=== PATIENT | female | born 1980 | race African-American/Black ===

== ENCOUNTER 2016-09-03 23:44 | Emergency (ER) | payer MEDICAID ==
[~2016-09-03] VITALS: Ht 167.6 cm; Wt 54.4 kg
[2016-09-04] VITALS: BP 125/79
== END 2016-09-04 03:55 | disposition left against medical advice (07) ==
LOC: ER 23:44
DX: M25.511 Pain in right shoulder (principal); Z53.21 Procedure and treatment not carried out due to patient leaving prior to being seen by health care provider
CPT/HCPCS: 73030

== ENCOUNTER 2017-03-20 18:27 | Emergency (ER) | payer SELFPAY ==
[~2017-03-20] VITALS: Ht 167.6 cm; Wt 54.4 kg
[2017-03-20] MEDS ORDERED: SODIUM CHLORIDE 0.9% 1,000 ML IV ONE (19:30)
[2017-03-20] MEDS ORDERED: LORazepam 2MG/ML-1ML VIAL IV ONE (19:30)
[2017-03-20 19:38] LABS: Eosinophils # (auto) 0 uL; Lymphocytes # (auto) 0.4 uL; Mean Corpuscular Hgb Conc. 31.5 g/dL (32.0-36.0); Monocytes # (auto) 0.2 uL; White Blood Cell 8.2 10^3/uL (4.4-10.8)
[2017-03-20 19:40] LABS: Basophils # (auto) 0.1 uL; Eosinophils % (auto) 0.2 % (0.0-7.0); Hematocrit 38.2 % (36.0-46.0); Lymphocytes % (auto) 5.5 % (10.0-50.0); Mean Corpuscular Hemoglobin 25.8 pg (28.0-32.0); Mean Corpuscular Volume 81.7 fL (80.0-100.0); Monocytes % (auto) 2.8 % (0.0-12.0); Neutrophils # (auto) 7.4 uL; Neutrophils % (auto) 90.5 % (37.0-80.0); Nucleated Red Blood Cells % 0.1 %; Platelet Count (auto) 282 10^3/uL (140-450); Red Blood Cells 4.67 10^6/uL (4.0-5.20); Red Cell Distribution Width 18.2 % (11.8-14.3)
[2017-03-20 19:50] LABS: Albumin 3.6 g/dL (3.4-5.0); BUN/Creatinine Ratio 26.2; Bilirubin, Total 0.6 mg/dL (0.2-1.0); Calcium 8.3 mg/dL (8.5-10.1); Magnesium 1.9 mg/dL (1.6-2.6); Potassium 3.6 mmol/L (3.5-5.1); Total Protein 7.4 g/dL (6.4-8.2)
[2017-03-20 19:58] LABS: INR 0.97 (0.9-1.15); Partial Thromboplastin Time 28.5 sec (22.64-33.71); Prothrombin Time 10.6 sec (9.37-12.3)
[2017-03-20 22:09] VITALS: BP 116/74
== END 2017-03-20 22:15 | disposition home or self-care (01) ==
LOC: EDBD 18:27 → EDUNIT# 18:27 → ER 18:35
DX: K29.70 Gastritis, unspecified, without bleeding (principal); K59.00 Constipation, unspecified; F12.10 Cannabis abuse, uncomplicated; Z91.030 Bee allergy status
CPT/HCPCS: 36415; 74176; 80053; 82150; 83605; 83690; 83735; 84702; 85025; 85610; 85730; 87040; 94761; 96361; 96374; 99285; J2060; J7030; J7040

== ENCOUNTER 2017-08-20 15:34 | Emergency (ER) | payer MEDICAID ==
[~2017-08-20] VITALS: Ht 167.6 cm; Wt 50.8 kg
[2017-08-20] MEDS ORDERED: LORazepam 0.5 MG TAB PO ONE (16:15)
[2017-08-20 16:38] LABS: Basophils # (auto) 0.1 uL; Eosinophils # (auto) 0.1 uL; Lymphocytes # (auto) 2.6 uL; Nucleated Red Blood Cells % 0.1 %
[2017-08-20 16:40] LABS: Basophils % (auto) 0.8 % (0.0-2.0); Eosinophils % (auto) 0.9 % (0.0-7.0); Hematocrit 36.6 % (36.0-46.0); Hemoglobin 11.9 g/dL (12.2-16.2); Lymphocytes % (auto) 35.1 % (10.0-50.0); Mean Corpuscular Hemoglobin 25.9 pg (28.0-32.0); Mean Corpuscular Hgb Conc. 32.6 g/dL (32.0-36.0); Mean Corpuscular Volume 79.4 fL (80.0-100.0); Monocytes # (auto) 0.6 uL; Monocytes % (auto) 8.4 % (0.0-12.0); Neutrophils % (auto) 54.8 % (37.0-80.0); Platelet Count (auto) 364 10^3/uL (140-450); Red Blood Cells 4.61 10^6/uL (4.0-5.20); White Blood Cell 7.3 10^3/uL (4.4-10.8)
[2017-08-20 16:57] LABS: Alanine Aminotransferase 25 U/L (13-56); Albumin 3.7 g/dL (3.4-5.0); Alkaline Phosphatase 73 U/L (45-117); Anion Gap 10 (5-15); Aspartate Aminotransferase 19 U/L (15-37); BUN/Creatinine Ratio 21.9; Bilirubin, Total 0.2 mg/dL (0.2-1.0); Blood Urea Nitrogen 16 mg/dL (7-18); Calcium 8.9 mg/dL (8.5-10.1); Carbon Dioxide 24 mmol/L (21-32); Chloride 104 mmol/L (98-107); GFR African American 114 mL/min; GFR Non-African American 94 mL/min; Glucose 62 mg/dL (74-106); Potassium 3.9 mmol/L (3.5-5.1); Sodium 138 mmol/L (136-145); Total Protein 7.7 g/dL (6.4-8.2)
[2017-08-20 17:17] VITALS: BP 115/92
[2017-08-20 17:32] LABS: Urine Amorphous Crystal FEW /hpf (None Seen); Urine Bacteria FEW /hpf (None Seen); Urine Blood Negative /uL (Negative); Urine Mucus FEW (None Seen); Urine Specific Gravity 1.023 (1.001-1.035); Urine WBC 7 /hpf (0 - 5)
== END 2017-08-20 17:25 | disposition home or self-care (01) ==
LOC: ER 15:34
DX: F41.9 Anxiety disorder, unspecified (principal); N39.0 Urinary tract infection, site not specified; Z91.030 Bee allergy status
CPT/HCPCS: 36415; 80053; 81001; 82962; 84484; 85025

== ENCOUNTER 2018-04-21 07:01 | Emergency (ER) | payer MEDICAID ==
[~2018-04-21] VITALS: Ht 167.6 cm; Wt 56.7 kg
[2018-04-21 07:16] VITALS: BP 131/85
[2018-04-21] MEDS ORDERED: methylPREDNISolone SOD SUCC 125 MG/2 ML VL IM ONE (08:30)
[2018-04-21] MEDS ORDERED: cefTRIAXone SOD 1,000 MG VL IM ONE (08:30)
[2018-04-21] MEDS ORDERED: LIDOCAINE W/ EPINEPHRINE 1 % INJ 30ML ONE (08:56)
== END 2018-04-21 09:10 | disposition home or self-care (01) ==
LOC: ER 07:01
DX: L70.9 Acne, unspecified (principal); F12.10 Cannabis abuse, uncomplicated; Z98.51 Tubal ligation status; Z91.030 Bee allergy status
CPT/HCPCS: 96372; 99283; J0696; J2001; J2930

== ENCOUNTER 2019-02-03 09:23 | Emergency (ER) | payer MEDICAID ==
[~2019-02-03] VITALS: Ht 170.2 cm; Wt 54.0 kg
[2019-02-03 09:45] VITALS: BP 147/77
== END 2019-02-03 11:19 | disposition home or self-care (01) ==
LOC: ER 09:23
DX: F41.9 Anxiety disorder, unspecified (principal); L65.9 Nonscarring hair loss, unspecified; F32.9 Major depressive disorder, single episode, unspecified; F12.10 Cannabis abuse, uncomplicated; Z98.51 Tubal ligation status

== ENCOUNTER 2019-12-23 10:41 | Emergency (ER) | payer MEDICAID ==
[~2019-12-23] VITALS: Ht 162.6 cm; Wt 59.0 kg
[2019-12-23 10:54] VITALS: BP 137/95
== END 2019-12-23 10:54 | disposition left against medical advice (07) ==
LOC: ER 10:41 → EDBD 10:41 → ER 10:54
DX: M54.5 Low back pain (principal); Z53.21 Procedure and treatment not carried out due to patient leaving prior to being seen by health care provider